=== PATIENT | male | born 1980 | race African-American/Black ===

== ENCOUNTER 2020-05-16 22:58 | Inpatient (IN) ==
[2020-05-17 01:02] LABS: Basophils # 0.1 10*3/uL (0.0-0.2); Basophils % 0.9 % (0.0-0.8); Eosinophils # 0.1 10*3/uL (0.0-0.87); Eosinophils % 0.9 % (0.00-10.9); Hematocrit 47.7 VOL% (42.0-52.0); Hemoglobin 15.2 GM/DL (14.0-18.0); Immature Granulocytes % 0.3 %; Immature Granulocytes Absolute 0.02 #; Lymphocytes # 2.7 10*3/uL (1.4-4.0); Lymphocytes % 40.2 % (21.2-54.2); Mean Corpuscular HGB Conc 31.9 GM/DL (32-36); Mean Corpuscular Volume 85.3 FL (87-102); Mean Platelet Volume 11.9 FL (9.6-12.0); Monocytes % 11.8 % (1.7-12.7); Neutrophils % 45.9 % (38.7-73.9); Platelet Count 195 T/CUMM (130-400); Red Blood Count 5.59 MC/CUMM (3.8-5.5); Red Cell Distribution Width 13.2 % (9.3-17.3); White Blood Count 6.8 T/CUMM (4-12)
[2020-05-17 01:18] LABS: Albumin 3.6 G/DL (3.4-5.0); Bilirubin,Total 1.3 MG/DL (0.2-1.0); Calcium 8.5 MG/DL (8.5-10.1); Osmolality,Calculated 280.4 MOS/KG (273-304); Potassium 4.1 MMOL/L (3.5-5.1); Total Protein 7.5 G/DL (6.4-8.3)
[2020-05-17] MEDS ORDERED: MORPHINE 4 MG/1 ML VIAL IV PRN (02:32)
[2020-05-17] MEDS ORDERED: ACETAMINOPHEN 325 MG TABLET PO PRN (02:32)
[2020-05-17] MEDS ORDERED: GLUCAGON 1 MG VIAL IM PRN (02:32)
[2020-05-17] MEDS ORDERED: DEXTROSE 50% 25 GM/50 ML VIAL IV PRN (02:32)
[2020-05-17] MEDS ORDERED: ONDANSETRON 4 MG/2 ML VIAL IV PRN (02:32)
[2020-05-17] MEDS ORDERED: DOCUSATE SODIUM 100 MG CAPSULE PO PRN (02:32)
[2020-05-17 03:29] LABS: INR 1.2; PT Patient Result 14.9 SECS (9.8-11.9)
[2020-05-17 03:30] LABS: Partial Thromboplastin Time 41.9 SECS (23.9-33.8)
[2020-05-17 03:48] LABS: Risk Ratio 4.27; Thyroid Stimulating Hormone 2.31 uIU/ml (0.358-3.74); VLDL CHOLESTEROL 25.8 MG/DL
[2020-05-17] MEDS ORDERED: SODIUM CHLORIDE 0.9% 1,000 ML IV SCH (04:00)
[2020-05-17] MEDS: DILTIAZEM INJ 100 MG in SODIUM CHLORIDE 0.9% 100 ML IV SCH ×2 (04:35→11:04)
[2020-05-17] MEDS ORDERED: ENOXAPARIN 150 MG/ML SYRINGE SUBCUT SCH (08:00)
[2020-05-17] MEDS ORDERED: DILTIAZEM 30 MG TABLET PO SCH (09:18)
[2020-05-17] MEDS ORDERED: DIGOXIN 0.5 MG/2 ML AMP IV ONE (09:19)
[2020-05-17] MEDS: RIVAROXABAN 15 MG TABLET PO SCH ×2 (10:21→17:44)
[2020-05-17] MEDS: METOPROLOL SUCCINATE XL 50 MG TABLET PO SCH ×2 (12:17→20:51)
[2020-05-18] MEDS: DILTIAZEM INJ 100 MG in SODIUM CHLORIDE 0.9% 100 ML IV SCH (00:33)
[2020-05-18 05:35] LABS: Basophils # 0.1 10*3/uL (0.0-0.2); Basophils % 0.9 % (0.0-0.8); Eosinophils # 0.1 10*3/uL (0.0-0.87); Eosinophils % 2.3 % (0.00-10.9); Hematocrit 41.9 VOL% (42.0-52.0); Hemoglobin 13.6 GM/DL (14.0-18.0); Immature Granulocytes % 0.2 %; Immature Granulocytes Absolute 0.01 #; Lymphocytes # 2.5 10*3/uL (1.4-4.0); Lymphocytes % 44.1 % (21.2-54.2); Mean Corpuscular HGB Conc 32.5 GM/DL (32-36); Mean Platelet Volume 11.9 FL (9.6-12.0); Monocytes % 13.3 % (1.7-12.7); Neutrophils % 39.2 % (38.7-73.9); Platelet Count 177 T/CUMM (130-400); Red Blood Count 4.93 MC/CUMM (3.8-5.5); Red Cell Distribution Width 13.1 % (9.3-17.3); White Blood Count 5.6 T/CUMM (4-12)
[2020-05-18 05:55] LABS: Calcium 8.1 MG/DL (8.5-10.1); Potassium 4.2 MMOL/L (3.5-5.1)
[2020-05-18 06:01] LABS: Albumin 2.8 G/DL (3.4-5.0); Bilirubin,Total 0.9 MG/DL (0.2-1.0); Calcium 8.1 MG/DL (8.5-10.1); Osmolality,Calculated 282.3 MOS/KG (273-304); Potassium 4.3 MMOL/L (3.5-5.1); Total Protein 6.3 G/DL (6.4-8.3)
[2020-05-18 06:22] LABS: Eosinophils 4 % (0-10); Lymphocytes 48 % (20-55); Platelet Estimate Normal; Segmented Neutrophils 38 % (50-85); Total Cells Counted 100
[2020-05-18] MEDS: METOPROLOL SUCCINATE XL 100 MG TABLET PO SCH ×2 (09:09→20:54)
[2020-05-18] MEDS: RIVAROXABAN 15 MG TABLET PO SCH (09:10)
[2020-05-18] MEDS ORDERED: LOSARTAN 25 MG TABLET PO ONE (15:40)
[2020-05-18] MEDS: APIXABAN 5 MG TABLET PO SCH (20:54)
[2020-05-19 05:43] LABS: Basophils % 0.7 % (0.0-0.8); Eosinophils # 0.2 10*3/uL (0.0-0.87); Eosinophils % 2.8 % (0.00-10.9); Hemoglobin 13.9 GM/DL (14.0-18.0); Immature Granulocytes % 0.2 %; Immature Granulocytes Absolute 0.01 #; Lymphocytes # 2.5 10*3/uL (1.4-4.0); Lymphocytes % 43.1 % (21.2-54.2); Mean Corpuscular HGB Conc 33.9 GM/DL (32-36); Mean Corpuscular Volume 83.3 FL (87-102); Mean Platelet Volume 11.9 FL (9.6-12.0); Monocytes % 12.7 % (1.7-12.7); Neutrophils % 40.5 % (38.7-73.9); Platelet Count 188 T/CUMM (130-400); Red Blood Count 4.92 MC/CUMM (3.8-5.5); White Blood Count 5.7 T/CUMM (4-12)
[2020-05-19 06:08] LABS: Calcium 8.5 MG/DL (8.5-10.1); Osmolality,Calculated 274.7 MOS/KG (273-304); Potassium 4.3 MMOL/L (3.5-5.1)
[2020-05-19] MEDS ORDERED: LOSARTAN 25 MG TABLET PO SCH (09:00)
[2020-05-19] MEDS: METOPROLOL SUCCINATE XL 100 MG TABLET PO SCH (09:30)
[2020-05-19] MEDS: APIXABAN 5 MG TABLET PO SCH (09:30)
[2020-05-19 12:54] VITALS: BP 116/84
[2020-06-07] MEDS ORDERED: RIVAROXABAN 20 MG TABLET PO SCH (08:00)
== END 2020-05-19 14:37 | DRG 176 ==
LOC: N.EDINP 22:58 → N.ED 22:58 → N.EDINP 05-17 04:00 → N.TELEN 05-17 04:22
PROVIDERS: ADMIT Internal Medicine; ATTEND Internal Medicine